=== PATIENT | female | born 1950 | race Caucasian/White ===

== ENCOUNTER 2019-05-31 11:04 | Inpatient (IN) | payer BC, OTHER ==
--- NOTE | 2019-05-31 11:48 | EKG ---
Test Reason : Blood Pressure : / mmHG Vent. Rate : 098 BPM Atrial Rate : 098 BPM P-R Int : 140 ms QRS Dur : 086 ms QT Int : 348 ms P-R-T Axes : 004 016 035 degrees QTc Int : 444 ms NORMAL SINUS RHYTHM CANNOT RULE OUT ANTERIOR INFARCT (CITED ON OR BEFORE 26-OCT-2013) ABNORMAL ECG WHEN COMPARED WITH ECG OF 26-OCT-2013 12:27, T WAVE VARIATION Confirmed by NOAH GARCIA, NORM ([id number]) on 05/31/2019 11:47:56 AM Referred By: Confirmed By:NORM ZAMORA MD
--- NOTE | 2019-05-31 11:52 | PDOC ---
History of Present Illness - General Chief Complaint: Chest Pain Stated Complaint: CHEST PAIN/HTN Time Seen by Provider: 05/31/19 11:52 Past History - Past Medical History Allergies/Adverse Reactions: Allergies Allergy/AdvReac Type Severity Reaction Status Date / Time No Known Allergies Allergy Verified 05/31/19 11:14 Home Medications: Ambulatory Orders Aspirin [Baby Aspirin] 81 mg PO DAILY 12/31/11 Lisinopril [Prinivil] 5 mg PO DAILY 12/31/11 Metoprolol Tartrate [Lopressor] 50 mg PO DAILY 12/31/11 Oxycodone HCl/Acetaminophen [Percocet 5-325 mg Tablet] 2 each PO Q6H PRN #10 04/07 Pitavastatin Calcium [Livalo] 2 mg PO DAILY 12/31/11 Tamsulosin HCl [Flomax] 0.4 mg PO DAILY #7 cap.er.24h 12/31/11 Cardiac Disorders: Yes (STENTS X 2) COPD: No HTN: Yes (NOT COMPLIANT) Hypercholesterolemia: Yes - Surgical History Cardiac Surgery: Yes (2 STENTS) - Immunization History Td Vaccination: Yes Immunization Up to Date: Yes - Suicide/Smoking/Psychosocial Hx Smoking Status: Yes Smoking History: Current every day smoker Number of Cigarettes Smoked Daily: 5 Information on smoking cessation initiated: No Hx Alcohol Use: No Drug/Substance Use Hx: No Substance Use Type: None *Physical Exam - Vital Signs Last Vital Signs Temp Pulse Resp BP Pulse Ox 98.6 F 99 H 19 222/110 H 96 05/31/19 11:11 05/31/19 11:11 05/31/19 11:11 05/31/19 11:11 05/31/19 11:11 ED Treatment Course - LABORATORY CBC & Chemistry Diagram: 05/31/19 12:21 05/31/19 12:21 Medical Decision Making - Medical Decision Making 05/31/19 13:03 HPI 69 year old woman with a history of smoking for 50+ years, 2 stents (mid-LAD, RCA), HTN, HLD (noncompliant w/ meds for 3 years) who presents with seconds of 7 /10 aching chest pain that woke her up from sleep yesterday at 0300 and with residual bilateral upper arm aching that was 7/10 and lasted for 5-10min. The patient had another episode of this same episode at 0330 this AM. She went to her PCP Dr. Kidd who called her division engineer Dr. Nunez who recommended she come to the ED. The patient denied any nausea, diaphoresis, or shortness of breath. The PCP was also concerned that the patient's R leg was swollen along the calf, but the patient had not noticed this before. She did not however she had had several months of bilateral leg pain that occurred while walking and resolves with rest. She reports resolution of all symptoms at bedside, but feels anxious. Repeat BP in the room 176/80 ROS GENERAL/CONSTITUTIONAL: No fever or chills. No weakness. HEAD, EYES, EARS, NOSE AND THROAT: No change in vision. No ear pain or discharge. No sore throat. CARDIOVASCULAR: No shortness of breath RESPIRATORY: No cough, wheezing, or hemoptysis. GASTROINTESTINAL: No nausea, vomiting, diarrhea or constipation. GENITOURINARY: No dysuria, frequency, or change in urination. MUSCULOSKELETAL: No joint or muscle swelling or pain. No neck or back pain. SKIN: No rash NEUROLOGIC: No headache, vertigo, loss of consciousness, or change in strength/ sensation. PE GENERAL: Awake, alert, and fully oriented, in no acute distress, obese woman HEAD: No signs of trauma, normocephalic, atraumatic EYES: EOMI, sclera anicteric, conjunctiva clear ENT: oropharynx clear without exudates. Moist mucosa NECK: Normal ROM, supple LUNGS: No distress, speaks full sentences, clear to auscultation bilaterally HEART: Regular rate and rhythm, normal S1 and S2, no murmurs, rubs or gallops, peripheral pulses normal and equal bilaterally. ABDOMEN: Soft, nontender, normoactive bowel sounds. No guarding, no rebound. No masses EXTREMITIES : Normal inspection, Normal range of motion, slight swelling around the R knee. No clubbing or cyanosis. NEUROLOGICAL: Cranial nerves II through XII grossly intact. Normal speech, no focal sensorimotor deficits SKIN: Warm, Dry, normal turgor, no rashes or lesions noted MDM 69 year old woman with a history of smoking for 50+ years, 2 stents (mid-LAD, RCA), HTN, HLD (noncompliant w/ meds for 3 years) who presents with seconds of 7 /10 aching chest pain that woke her up from sleep yesterday at 0300 and with residual bilateral upper arm aching that was 7/10 and lasted for 5-10min. The patient had another episode of this same episode at 0330 this AM. DDX including but not limited to: acs vs arrythmia r/o DVT r/o aortic dissection W/U: - cbc, cmp, bnp, trop, ekg, cxr, duplex ED Course: labs wnl cxr without acute process EKG: normal sinus rhythm HR 96, no interval abnormalities, narrow QRS, ST segments and morphology normal. T wave flattening in V1 no priors for comparison CTA: no evidence of aortic dissection or anuersym Will admit to tele obs for r/o acs Dianne Bender, PGY2 Emergency Medicine *DC/Admit/Observation/Transfer Diagnosis at time of Disposition: Chest pain - Discharge Dispostion Condition at time of disposition: Stable Decision to Admit order: Yes - Referrals - Patient Instructions - Post Discharge Activity
[2019-05-31 12:31] LABS: EOS % 1.1 % (0-4.5); HEMATOCRIT 43.2 % (32.4-45.2); HEMOGLOBIN 14.3 GM/dL (10.7-15.3); MCH 28.4 pg (25.7-33.7); MEAN CELL VOLUME 86.1 fl (80-96); MEAN PLT VOLUME 8.1 fl (7.5-11.1); MONO % 6.8 % (3.8-10.2); NEUT % 72.1 % (42.8-82.8); PLATELET COUNT 212 K/MM3 (134-434); RBC 5.02 M/mm3 (3.60-5.2); RDW 14.6 % (11.6-15.6); WHITE BLOOD COUNT 7.4 K/mm3 (4.0-10.0)
[2019-05-31 13:09] LABS: ALBUMIN 3.3 g/dl (3.4-5.0); ALK PHOS 111 U/L (45-117); ANION GAP 7 MMOL/L (8-16); BILIRUBIN,TOTAL 0.8 mg/dL (0.2-1); BLOOD UREA NITROGEN 16.4 mg/dL (7-18); CALCIUM 9.2 mg/dL (8.5-10.1); CHLORIDE 109 mmol/L (98-107); CO2 26 mmol/L (21-32); GLUCOSE,RANDOM 151 mg/dL (74-106); POTASSIUM 4.3 mmol/L (3.5-5.1); SGOT/AST 18 U/L (15-37); SGPT/ALT 24 U/L (13-61); SODIUM 141 mmol/L (136-145); TOT PROT 6.9 g/dl (6.4-8.2)
[2019-05-31 13:12] LABS: INR 1.01 (0.83-1.09); PROTHROMBIN TIME (PATIENT) 11.9 SEC (9.7-13.0)
--- NOTE | 2019-05-31 13:59 | PDOC ---
Documentation entered by Ernestina Morrow SCRIBE, acting as scribe for Momo Ricks MD. Momo Ricks MD: This documentation has been prepared by the Cristhian thompson Xhesika, SCRIBE, under my direction and personally reviewed by me in its entirety. I confirm that the documentation accurately reflects all work, treatment, procedures, and medical decision making performed by me. Attending Attestation - Resident Resident Name: Dianne Bender - ED Attending Attestation I have performed the following: I have examined & evaluated the patient, The case was reviewed & discussed with the resident, I agree w/resident's findings & plan - HPI HPI: 05/31/19 13:23 The patient is a 69 year old female with a significant PMH of [place] (stents x2), HLD, and HTN (non compliant with medication), noncompliant with all meds, who presents to the emergency department with chest pain since 3am yesterday. The patient notes she endorsed 7/10, substernal, achy chest pain that woke her up from her sleep, it lasted seconds then radiated to her b/l arms lasting 5-10 minutes before subsiding. The patient notes she woke up this AM and symptoms recurred which prompted her to go to her PCP, who advised her to come to the ED for further evaluations. Patient notes she has been endorsing intermittent R calf/foot pain, worsened with walking and relieved with rest. The patient denies shortness of breath, headache and dizziness. Denies fever, chills, cough, nausea, vomiting, diarrhea and constipation. Denies dysuria, frequency, urgency and hematuria. Allergies: NKDA Social history: current everyday smoker 50+ years PCP: Dr. Kidd Mental Health Program Manager: Dr. Nunez - Physicial Exam PE: 05/31/19 13:55 Elevated triage blood pressure, improves to 170 systolic, O2 sat normal Obese female seated comfortably in stretcher, speaking full sentences, in no acute distress, conversant and smiling Heart is regular, one out of 6 systolic ejection murmur Lungs are clear Abdomen benign Extremities are warm and well perfused, but unable to palpate pulses on right foot - Medical Decision Making 05/31/19 13:56 69-year-old female with known coronary artery disease, untreated hypertension, likely peripheral vascular disease presents with episode of chest/arm pain in the setting of significantly elevated blood pressures occurring over the last 2 days, and several weeks of what appears to be right lower extremity claudication symptoms. labs, ekg, cxr cta chest to r/o dissection given elevated BP and arm complaints will need admission for cardiac workup and BP control. no dvt on lower extremity doppler, will need arterial imaging as inpatient 05/31/19 16:10 cta without dissection. proceed with tele admit for cardiac workup, BP remains improved. Heart Score/ECG Review #1 ECG reviewed & interpreted by me at: 11:04 General ECG Interpretation: Sinus Rhythm, Normal Rate (98), Normal Intervals ( qtc 444), No acute ischemic changes (st strain I/AVL, no t wave changes or DOE)
[2019-06-01] MEDS ORDERED: ACETAMINOPHEN 325 MG TABLET (FP) PO PRN (08:31)
[2019-06-01] MEDS: HEPARIN NA (PORCINE) 5,000 UNITS/ML 1ML VIAL SQ SCH ×2 (10:23→22:24)
[2019-06-01] MEDS: ASPIRIN COATED 81 MG TABLET.EC PO SCH (10:23)
--- NOTE | 2019-06-01 10:31 | CON.CARD ---
Consult Consult Specialty:: Cardiology Referred by:: Medicine Reason for Consultation:: chest and arm pain - History of Present Illness Chief Complaint: chest and arm pain History of Present Illness: 69F h/o smoking, CAD s/p 2 stents (mid LAD, RCA), HTN, HLD (noncompliant with statin) p/w chest pain that woke her up from sleep overnight, also felt aching in both arms that lasted 5-10 min. Had a second episode about an hour later. Was concerned as she had this in the past around the time she got stents. Sees Dr. Nunez for cardio, last seen in 2013. No dyspnea, palps, orthopnea, edema. Has pain in both legs with walking, better with rest. Went to PCP Dr Kidd, reportedly BP was >200 systolic there. She was told in the past to take BP meds but stopped taking them on her own. - History Source Limitations to Obtaining History: No Limitations - Alcohol/Substance Use Hx Alcohol Use: No - Smoking History Smoking history: Current every day smoker Aproximately how many cigarettes per day: 5 Home Medications - Allergies Allergies/Adverse Reactions: Allergies Allergy/AdvReac Type Severity Reaction Status Date / Time No Known Allergies Allergy Verified 05/31/19 11:14 - Home Medications Home Medications: Ambulatory Orders NK [No Known Home Medication] 06/01/19 Family Disease History - Family Disease History Family History: Unremarkable Review of Systems - Review of Systems Constitutional: reports: No Symptoms Eyes: reports: No Symptoms HENT: reports: No Symptoms Neck: reports: No Symptoms Cardiovascular: reports: No Symptoms Respiratory: reports: No Symptoms Gastrointestinal: reports: No Symptoms Genitourinary: reports: No Symptoms Musculoskeletal: reports: No Symptoms Integumentary: reports: No Symptoms Neurological: reports: No Symptoms Endocrine: reports: No Symptoms Hematology/Lymphatic: reports: No Symptoms Psychiatric: reports: No Symptoms Vital Signs: Vital Signs Temperature 98.1 F 06/01/19 10:16 Pulse Rate 77 06/01/19 10:16 Respiratory Rate 18 06/01/19 10:16 Blood Pressure 155/91 06/01/19 10:16 O2 Sat by Pulse Oximetry (%) 98 06/01/19 10:16 Constitutional: Yes: Well Nourished, No Distress, Calm Eyes: Yes: Conjunctiva Clear, EOM Intact HENT: Yes: Atraumatic, Normocephalic Neck: Yes: Supple, Trachea Midline Respiratory: Yes: Regular, CTA Bilaterally Gastrointestinal: Yes: Normal Bowel Sounds, Soft Cardiovascular: Yes: Regular Rate and Rhythm JVD: No Carotid Bruit: No PMI: Non-Displaced Heart Sounds: Yes: S1, S2 Murmur: No: Systolic Murmur Musculoskeletal: No: Back Pain Extremities: No: Cold Edema: No Integumentary: No: Jaundice Neurological: Yes: Alert, Oriented Psychiatric: No: Agitated - Other Data Labs, Other Data: CBC, BMP 05/31/19 12:21 05/31/19 12:21 INR, PTT INR 1.01 (0.83-1.09) 05/31/19 12:23 Troponin, BNP 05/31/19 05/31/19 05/31/19 12:21 12:21 16:31 Troponin I < 0.02 < 0.02 B-Natriuretic Peptide 57.8 Troponin, BNP 05/31/19 05/31/19 05/31/19 12:21 12:21 16:31 Troponin I < 0.02 < 0.02 B-Natriuretic Peptide 57.8 Assessment/Plan CTA chest/abd aorta atherosclerosis, no aeurysm or dissection, minimal centrilobular emphysema, thyroid nodule, mild fatty infiltration of liver, diverticulosis, masslike density in L hemielvis EKG sinus, 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
--- NOTE | 2019-06-01 13:36 | HP ---
Admitting History and Physical - Primary Care Physician PCP: Dr. Kidd - Admission Chief Complaint: B/L arm pain and chest pressure History of Present Illness: Patient is a 69 y/o female with past medical history of [place] x 2 stent placements (2007, 2012), HTN, HLD. Patient presented to ER with complaints of bilateral shoulder pain for 3 days. Patient states the pain is described as dull/aching that begins at shoulders and ends at her elbows. Patient noted that yesterday she had a brief episode of mid chest pressure, not accompanied with N/V, SOB, or dizziness. Patient states that she has not taken her BP or cardiac medications in 2 years. The last time she has seen her acid strength inspector was in 2012 after her second SC. History Source: Patient Limitations to Obtaining History: No Limitations - Past Medical History Cardiovascular: Yes: HTN, Hyperlipdemia, [place] (2007, 2012) - Past Surgical History Past Surgical History: Yes: , Stent (x 2 placed in 2007 and 2012) - Smoking History Smoking history: Current every day smoker Aproximately how many cigarettes per day: 5 - Alcohol/Substance Use Hx Alcohol Use: No - Social History Usual Living Arrangement: Yes: With Spouse ADL: Independent History of Recent Travel: No Home Medications - Allergies Allergies/Adverse Reactions: Allergies Allergy/AdvReac Type Severity Reaction Status Date / Time No Known Allergies Allergy Verified 05/31/19 11:14 - Home Medications Home Medications: Ambulatory Orders NK [No Known Home Medication] 06/01/19 Review of Systems - Review of Systems Constitutional: reports: No Symptoms Eyes: reports: No Symptoms HENT: reports: Nasal Congestion Neck: reports: No Symptoms Cardiovascular: reports: No Symptoms Respiratory: reports: No Symptoms Gastrointestinal: reports: No Symptoms Genitourinary: reports: No Symptoms Breasts: reports: No Symptoms Reported Musculoskeletal: reports: Extremity Pain (bilateral arms) Integumentary: reports: No Symptoms Neurological: reports: No Symptoms Endocrine: reports: No Symptoms Hematology/Lymphatic: reports: No Symptoms Psychiatric: reports: No Symptoms Physical Examination Vital Signs: Vital Signs Temperature 98.0 F 06/01/19 11:26 Pulse Rate 79 06/01/19 11:26 Respiratory Rate 18 06/01/19 11:26 Blood Pressure 142/79 06/01/19 11:26 O2 Sat by Pulse Oximetry (%) 95 06/01/19 11:26 Constitutional: Yes: No Distress, Calm Eyes: Yes: Conjunctiva Clear HENT: Yes: Atraumatic Neck: Yes: Supple Cardiovascular: Yes: Regular Rate and Rhythm Respiratory: Yes: Regular, CTA Bilaterally Gastrointestinal: Yes: Normal Bowel Sounds, Soft, Abdomen, Obese Musculoskeletal: Yes: WNL Extremities: Yes: WNL Edema: No Neurological: Yes: Alert, Oriented Psychiatric: Yes: Alert, Oriented Labs: CBC, BMP 05/31/19 12:21 05/31/19 12:21 Imaging - Results Cat Scan: Report Reviewed Problem List - Problems (1) HLD (hyperlipidemia) Assessment/Plan: -Rosuvastatin Code(s): E78.5 - HYPERLIPIDEMIA, UNSPECIFIED (2) HTN (hypertension) Assessment/Plan: -currently not on BP meds -monitor BP--if BP begin to show signs of elevation will consider re-starting medication -low Na diet Code(s): I10 - ESSENTIAL (PRIMARY) HYPERTENSION (3) Chest pain Assessment/Plan: -Cardiology on board -tele monitoring -troponin neg x 2 -aspirin daily -Chest and ABdomen CTA shows prominent atheromatous plaques with calcifications in the distal abdominal aorta, no evidence of aortic dissection or aneurysm Code(s): R07.9 - CHEST PAIN, UNSPECIFIED (4) Abnormal CT scan Assessment/Plan: -Chest and ABdomen CTA shows minimal centrilobular emphysema in lung, enlarged thyroid gland with 1.5cm nodule on left, mild fatty infiltration of liver, lobulated masslike density in the left hemipelvis 8 x 5.2cm -Pulm consult -Endo consult -BAND BUILDER consult Code(s): R93.89 - ABNORMAL FINDINGS ON DX IMAGING OF OTH BODY STRUCTURES Assessment/Plan see problem list dvt ppx
--- NOTE | 2019-06-01 15:56 | ECHO ---
Version: 1 Name: RADHA GALVAN Exam: Adult Echocardiogram Study Date: 06/01/2019, 2:41 PM Age: 69 Years MMode/2D Measurements & Calculations IVSd: 0.95 cm LVIDs: 3.1 cm LVIDd: 4.7 cm LVPWd: 0.92 cm LVOT diam: 2.02 cm Ao root diam: 2.6 cm LA dimension: 3.4 cm Doppler Measurements & Calculations MV E max mahesh: 62.2 cm/sec Med E/e': 12.3 MV A max mahesh: 100.7 cm/sec Med Peak E' Mahesh: 5.1 cm/sec MV E/A: 0.62 Lat E/e': 13.9 Lat Peak E' Mahesh: 4.5 cm/sec Ao max P.6 mmHg SARAH(I,D): 1.87 cm Ao mean P.8 mmHg LV V1 mean: 65.1 cm/sec Ao V2 max: 137.7 cm/sec LV V1 mean P.89 mmHg Procedure A two-dimensional transthoracic echocardiogram with color flow and Doppler was performed in limited views only. No subcostal windows. The remaining windows are adequate. Left Ventricle The left ventricular size, thickness and function are normal. Grade I diastolic dysfunction, (abnorm al relaxation pattern). Right Ventricle The right ventricle is normal in size and function. Atria Normal left and right atrial size and function. Mitral Valve The mitral valve is normal in structure and function. Tricuspid Valve The tricuspid valve is normal in structure and function. There is mild tricuspid regurgitation. Aortic Valve The aortic valve is normal in structure and function. Pulmonic Valve The pulmonic valve is normal in structure and function. Great Vessels The aortic root is normal size. Pericardium/Pleura There is no pericardial effusion. Summary Statements The left ventricular size, thickness and function are normal Grade I diastolic dysfunction, (abnormal relaxation pattern). The right ventricle is normal in size and function. The aortic valve is normal in structure and function. Jonathan Hernandez 06/01/2019, 2:55 PM Ordering Physician: JERMAIN BUTLER Referring Physician: OVI Performed By: Nkechi Monae
[2019-06-01] MEDS: ROSUVASTATIN CA 20 MG TABLET (FP) PO SCH (22:24)
[2019-06-02 08:22] LABS: EOS % 2.6 % (0-4.5); HEMATOCRIT 40.9 % (32.4-45.2); HEMOGLOBIN 13.4 GM/dL (10.7-15.3); LYMPH % 31.9 % (8-40); MCH 28.5 pg (25.7-33.7); MCHC 32.7 g/dl (32.0-36.0); MEAN CELL VOLUME 87.1 fl (80-96); MEAN PLT VOLUME 8.5 fl (7.5-11.1); MONO % 9.7 % (3.8-10.2); NEUT % 54.8 % (42.8-82.8); PLATELET COUNT 192 K/MM3 (134-434); RDW 14.6 % (11.6-15.6); WHITE BLOOD COUNT 6.4 K/mm3 (4.0-10.0)
[2019-06-02 09:15] LABS: ALBUMIN 2.9 g/dl (3.4-5.0); ALK PHOS 94 U/L (45-117); ANION GAP 8 MMOL/L (8-16); BLOOD UREA NITROGEN 19.5 mg/dL (7-18); CALCIUM 9.1 mg/dL (8.5-10.1); CHLORIDE 109 mmol/L (98-107); CHOLESTEROL 212 mg/dL (50-200); CO2 28 mmol/L (21-32); GLUCOSE,RANDOM 133 mg/dL (74-106); HDL CHOLESTEROL 30 mg/dL (40-60); POTASSIUM 4.2 mmol/L (3.5-5.1); SGOT/AST 14 U/L (15-37); SGPT/ALT 19 U/L (13-61); SODIUM 144 mmol/L (136-145); TOT PROT 6.2 g/dl (6.4-8.2); TRIGLYCERIDES 412 mg/dL (0-150)
[2019-06-02] MEDS: HEPARIN NA (PORCINE) 5,000 UNITS/ML 1ML VIAL SQ SCH ×2 (10:31→21:37)
[2019-06-02] MEDS: ASPIRIN COATED 81 MG TABLET.EC PO SCH (10:31)
[2019-06-02] MEDS ORDERED: REGADENOSON 0.4 MG/5 ML PRE-FILLED SYRINGE IVPUSH ONE ×2 (10:53→11:15)
--- NOTE | 2019-06-02 12:05 | CON.PULM ---
Consult Consult Specialty:: PULM/CCM Referred by:: FRANCINE Reason for Consultation:: Abnormal CT chest - History of Present Illness Chief Complaint: CP History of Present Illness: 69 F, 1 PPW smoker, CAD S/P 2 stents (mid LAD, RCA), HTN, and HLD. Previously stopped smoking for almost 2 years "cold turkey" after her second AMI. She does snore and have some Excessive Daytime Sleepiness (EDS). No specific history of witnessed apneas as she sleeps alone. Admitted via the ER due to chest pain that woke her up from sleep. No travel history or sick contacts. No fever or chills. No hemoptysis of night sweats. No previous PFTs. No previous need for inhalational medications, prednisone, or acute exacerbations. - History Source History Provided By: Patient Limitations to Obtaining History: No Limitations - Past Medical History Cardio/Vascular: Yes: HTN, Hyperlipdemia, [place] (2007, 2012) Pulmonary: Yes: Bronchitis. No: Asthma, Cancer, COPD, O2 Dependent, Pneumonia, Previously Intubated, Pulmonary Embolus, Pulmonary Fibrosis, Sleep Apnea ...: No - Past Surgical History Past Surgical History: Yes: , Stent (x 2 placed in 2007 and 2012) - Alcohol/Substance Use Hx Alcohol Use: No - Smoking History Smoking history: Current every day smoker Have you smoked in the past 12 months: Yes Aproximately how many cigarettes per day: 5 - Social History ADL: Independent History of Recent Travel: No Home Medications - Allergies Allergies/Adverse Reactions: Allergies Allergy/AdvReac Type Severity Reaction Status Date / Time No Known Allergies Allergy Verified 05/31/19 11:14 - Home Medications Home Medications: Ambulatory Orders NK [No Known Home Medication] 06/01/19 Review of Systems - Review of Systems Constitutional: denies: Chills, Fever, Malaise, Night Sweats, Unintentional Wgt. Loss Eyes: reports: No Symptoms HENT: reports: No Symptoms Neck: reports: No Symptoms Cardiovascular: reports: Chest Pain, Shortness of Breath. denies: Edema, Palpitations Respiratory: reports: Cough, Snoring. denies: Hemoptysis, Orthopnea, PND, SOB, SOB on Exertion, Wheezing Gastrointestinal: reports: No Symptoms Genitourinary: reports: No Symptoms Breasts: reports: No Symptoms Reported Musculoskeletal: reports: No Symptoms Integumentary: reports: No Symptoms Neurological: reports: No Symptoms Endocrine: reports: No Symptoms Hematology/Lymphatic: reports: No Symptoms Psychiatric: reports: No Symptoms Physical Exam Vital Sings: Vital Signs Temperature 97.8 F 06/02/19 08:24 Pulse Rate 73 06/02/19 08:24 Respiratory Rate 18 06/02/19 08:26 Blood Pressure 149/87 06/02/19 08:24 O2 Sat by Pulse Oximetry (%) 94 L 06/01/19 21:00 Constitutional: Yes: No Distress, Calm, Obese Eyes: Yes: Conjunctiva Clear, EOM Intact HENT: Yes: Atraumatic, Normocephalic Neck: Yes: Supple, Trachea Midline Cardiovascular: Yes: Regular Rate and Rhythm Respiratory: Yes: Diminished. No: Accessory Muscle Use, Rales, Rhonchi, SOB, SOB on Exertion, Stridor, Tachypnea, Wheezes ...Inspection: Yes: WNL ...Clubbing: No Gastrointestinal: Yes: Normal Bowel Sounds, Soft, Abdomen, Obese Renal/: Yes: WNL Musculoskeletal: Yes: WNL Extremities: Yes: WNL Edema: No Peripheral Pulses WNL: Yes Integumentary: Yes: WNL Neurological: Yes: WNL, Alert, Oriented ...Motor Strength: WNL Psychiatric: Yes: WNL, Alert, Oriented Labs: CBC, BMP 06/02/19 06:15 06/02/19 06:15 Imaging - Results Chest X-ray: Report Reviewed, Image Reviewed Cat Scan: Report Reviewed, Image Reviewed Problem List - Problems (1) Emphysema of lung Code(s): J43.9 - EMPHYSEMA, UNSPECIFIED (2) Abnormal CT scan Code(s): R93.89 - ABNORMAL FINDINGS ON DX IMAGING OF OTH BODY STRUCTURES (3) Chest pain Code(s): R07.9 - CHEST PAIN, UNSPECIFIED (4) HLD (hyperlipidemia) Code(s): E78.5 - HYPERLIPIDEMIA, UNSPECIFIED (5) HTN (hypertension) Code(s): I10 - ESSENTIAL (PRIMARY) HYPERTENSION (6) Thyroid nodule Code(s): E04.1 - NONTOXIC SINGLE THYROID NODULE Assessment/Plan Smoking cessation discussed Patient advised to have PFTs as an outpatient Sleep screen for possible sleep apnea Cardiac workup ongoing Patient to follow with me as an outpatient to complete workup There is no Pulmonary contraindication for DC planning if cardiac workup is negative Thank you. Dr Snowden
--- NOTE | 2019-06-02 12:33 | CON.OBG ---
Consult Consult Specialty:: CARPENTER MATE Reason for Consultation:: pelvic masslike density seen on imaging - History of Present Illness History of Present Illness: Patient is a 69 y/o female with past medical history of [place] x 2 with stents, HTN , HLD who presented to ED with complaints of bilateral shoulder pain for 3 days that was waking her up at 3 am. Pain would resolve after short time and didnt recur throughout the day. Patient states the pain is described as dull/aching that begins at shoulders and ends at her elbows. Pt admitted for cardiac workup and upon imaging studies was found to have a masslike density in her pelvis on the left. Pt admits to not seeing a first aid director in many years. LMP about 10- 15 years ago. Denies pelvic pain/pressure. No PMB. Has had c section otherwise no abdominal/pelvic surgeries. Pt states a few years ago she had an ultrasound and was told she had fibroids, but she was asymptomatic at that time. - History Source History Provided By: Patient, Medical Record Limitations to Obtaining History: No Limitations - Past Medical History Cardio/Vascular: Yes: HTN, Hyperlipdemia, [place] (2007, 2012) Pulmonary: Yes: Bronchitis. No: Asthma, Cancer, COPD, O2 Dependent, Pneumonia, Previously Intubated, Pulmonary Embolus, Pulmonary Fibrosis, Sleep Apnea ...LMP Comment: 10-15 years ago ...: No - Past Surgical History Past Surgical History: Yes: , Stent (x 2 placed in 2007 and 2012) - Alcohol/Substance Use Hx Alcohol Use: No - Smoking History Smoking history: Current every day smoker Have you smoked in the past 12 months: Yes Aproximately how many cigarettes per day: 5 - Social History ADL: Independent History of Recent Travel: No Home Medications - Allergies Allergies/Adverse Reactions: Allergies Allergy/AdvReac Type Severity Reaction Status Date / Time No Known Allergies Allergy Verified 05/31/19 11:14 - Home Medications Home Medications: Ambulatory Orders NK [No Known Home Medication] 06/01/19 Family Disease History - Family Disease History Family Disease History: Diabetes: Father Other Family History: Paternal great aunt and Paternal aunt both had breast cancer resulting in mastectomy, mother had brain tumor. Pt denies any uterine/ ovarian cancer in family. 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 No: Tenderness , Tenderness, Rebound Pelvis: No: Tenderness Neurological: Yes: Alert, Oriented Psychiatric: Yes: Alert, Oriented Labs: CBC, BMP 06/02/19 06:15 06/02/19 06:15 Problem List - Problems (1) Pelvic mass in female Code(s): R19.00 - INTRA-ABD AND PELVIC SWELLING, MASS AND LUMP, UNSP SITE (2) Menopause Code(s): Z78.0 - ASYMPTOMATIC MENOPAUSAL STATE (3) Emphysema of lung Code(s): J43.9 - EMPHYSEMA, UNSPECIFIED (4) Chest pain Code(s): R07.9 - CHEST PAIN, UNSPECIFIED (5) Abnormal CT scan Code(s): R93.89 - ABNORMAL FINDINGS ON DX IMAGING OF OTH BODY STRUCTURES (6) Thyroid nodule Code(s): E04.1 - NONTOXIC SINGLE THYROID NODULE Assessment/Plan 69 y/o female here with workup for chest/arm/shoulder pain with pelvic mass noted on CT scan ordered Ca 125 - pending will order pelvic ultrasound f/u results, likely as outpatient for surgical planning if necessary as pt currently not medically optimized for surgery
--- NOTE | 2019-06-02 14:10 | PN ---
Progress Note, Physician Chief Complaint: Chest pain Pelvic mass History of Present Illness: NAD Seen by cardiology trops x 3 negative EKG unremarkable Echo grade I dystolic dysfunction - Current Medication List Current Medications: Active Medications Acetaminophen (Tylenol -) 650 mg PO Q6H PRN PRN Reason: PAIN LEVEL 6-10 Aspirin (Ecotrin -) 81 mg PO DAILY [facility] Last Admin: 06/02/19 10:31 Dose: 81 mg Heparin Sodium (Porcine) (Heparin -) 5,000 unit SQ BID [facility] Last Admin: 06/02/19 10:31 Dose: 5,000 unit Rosuvastatin Calcium (Crestor -) 20 mg PO HS [facility] Last Admin: 06/01/19 22:24 Dose: 20 mg - Objective Vital Signs: Vital Signs Temperature 97.8 F 06/02/19 08:24 Pulse Rate 73 06/02/19 08:24 Respiratory Rate 18 06/02/19 08:26 Blood Pressure 149/87 06/02/19 08:24 O2 Sat by Pulse Oximetry (%) 94 L 06/01/19 21:00 Constitutional: Yes: Well Nourished, No Distress, Calm, Obese Cardiovascular: Yes: Regular Rate and Rhythm Respiratory: Yes: Regular Gastrointestinal: Yes: WNL, Normal Bowel Sounds, Soft Genitourinary: Yes: WNL Musculoskeletal: Yes: WNL Extremities: Yes: WNL Edema: No Peripheral Pulses WNL: Yes Neurological: Yes: Alert, Oriented Psychiatric: Yes: Alert, Oriented Labs: CBC, BMP 06/02/19 06:15 06/02/19 06:15 INR, PTT INR 1.01 (0.83-1.09) 05/31/19 12:23 Problem List - Problems (1) Chest pain Assessment/Plan: -Cardiology on board -tele monitoring -troponin neg x 3 -aspirin daily -Chest and ABdomen CTA shows prominent atheromatous plaques with calcifications in the distal abdominal aorta, no evidence of aortic dissection or aneurysm -Had stress test today -Restarted on Crestor Code(s): R07.9 - CHEST PAIN, UNSPECIFIED (2) HLD (hyperlipidemia) Assessment/Plan: -intolerant to lipitor in the past, tolerated crestor -restarted on crestor Code(s): E78.5 - HYPERLIPIDEMIA, UNSPECIFIED (3) Pelvic mass in female Assessment/Plan: -SOILS ANALYST consult -Chest and ABdomen CTA shows minimal centrilobular emphysema in lung, enlarged thyroid gland with 1.5cm nodule on left, mild fatty infiltration of liver, lobulated masslike density in the left hemipelvis 8 x 5.2cm Code(s): R19.00 - INTRA-ABD AND PELVIC SWELLING, MASS AND LUMP, UNSP SITE (4) Diabetes mellitus Assessment/Plan: -A1c at 8.8 -BGM AC HS -Diabetic low sodium diet -ISS -RD consult -Start Metformin 500 mg po BID upon discharge Code(s): E11.9 - TYPE 2 DIABETES MELLITUS WITHOUT COMPLICATIONS (5) Hypertriglyceridemia Assessment/Plan: -Start Lovaza 2 g BID Code(s): E78.1 - PURE HYPERGLYCERIDEMIA Assessment/Plan see problem list
[2019-06-02] MEDS: INSULIN SLIDING SCALE (NOVOLOG) 1 VIAL SQ SCH (16:34)
--- NOTE | 2019-06-02 16:54 | PN ---
Progress Note (short form) - Note Progress Note: s: no cp sob palps dizzy o: Vital Signs Period Temp Pulse Resp BP Sys/Torre Pulse Ox Last 24 Hr 97.2 F-98.2 F 71-86 18-20 139-156/71-92 94 Constitutional: Yes: Well Nourished, No Distress, Calm Eyes: Yes: Conjunctiva Clear Respiratory: Yes: Regular, CTA Bilaterally Gastrointestinal: Yes: Normal Bowel Sounds, Soft Cardiovascular: Yes: Regular Rate and Rhythm JVD: No Heart Sounds: Yes: S1, S2 Murmur: No: Systolic Murmur Musculoskeletal: No: Back Pain Extremities: No: Cold Edema: No Integumentary: No: Jaundice Neurological: Yes: Alert, Oriented Psychiatric: No: Agitated Current Medications Generic Name Dose Route Start Last Admin Trade Name Freq PRN Reason Stop Dose Admin Acetaminophen 650 mg 06/01/19 08:31 Tylenol - PO Q6H PRN PAIN LEVEL 6-10 Aspirin 81 mg 06/01/19 10:00 06/02/19 10:31 Ecotrin - PO 81 mg DAILY [facility] Administration Heparin Sodium (Porcine) 5,000 unit 06/01/19 10:00 06/02/19 10:31 Heparin - SQ 5,000 unit BID [facility] Administration Insulin Aspart 1 vial 06/02/19 16:30 06/02/19 16:34 Novolog Vial Sliding Scale - SQ Not Given TIDAC [facility] Protocol Rosuvastatin Calcium 20 mg 06/01/19 22:00 06/01/19 22:24 Crestor - PO 20 mg HS [facility] Administration CBC, BMP 06/02/19 06:15 06/02/19 06:15 Assessment/Plan CTA chest/abd aorta atherosclerosis, no aeurysm or dissection, minimal centrilobular emphysema, thyroid nodule, mild fatty infiltration of liver, diverticulosis, masslike density in L hemielvis EKG sinus, 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
[2019-06-02] MEDS: OMEGA-3 ACID ETHYL ESTERS (FATTY-ACIDS) 1 GM CAPSULE (FP) PO SCH (21:37)
[2019-06-02] MEDS: ROSUVASTATIN CA 20 MG TABLET (FP) PO SCH (21:37)
--- NOTE | 2019-06-02 23:46 | CONSULT ---
Consult Consult Specialty:: endocrine Referred by:: heena ramos np Reason for Consultation:: thyroid nodule left lobe - History of Present Illness Chief Complaint: chest pain History of Present Illness: 69 y/o female with past medical history of thyroid nodule last seen 2011,[place] x 2 stent placements (2007, 2012), HTN, HLD. Patient presented to ER with complaints of bilateral shoulder pain for 3 days. Patient states the pain is described as dull/aching that begins at shoulders and ends at her elbows. sp ct chest showed left thyroid nodule 1.5 cm calcified.she denies dysphagia,neck pain or cough.she is unaware of thyroid cancer in her family. - Past Medical History Cardio/Vascular: Yes: HTN, Hyperlipdemia, [place] (2007, 2012) Pulmonary: Yes: Bronchitis. No: Asthma, Cancer, COPD, O2 Dependent, Pneumonia, Previously Intubated, Pulmonary Embolus, Pulmonary Fibrosis, Sleep Apnea ...LMP Comment: 10-15 years ago ...: No - Past Surgical History Past Surgical History: Yes: , Stent (x 2 placed in 2007 and 2012) - Alcohol/Substance Use Hx Alcohol Use: No - Smoking History Smoking history: Current every day smoker Have you smoked in the past 12 months: Yes Aproximately how many cigarettes per day: 5 - Social History ADL: Independent History of Recent Travel: No Home Medications - Allergies Allergies/Adverse Reactions: Allergies Allergy/AdvReac Type Severity Reaction Status Date / Time No Known Allergies Allergy Verified 05/31/19 11:14 - Home Medications Home Medications: Ambulatory Orders NK [No Known Home Medication] 06/01/19 Family Disease History - Family Disease History Family Disease History: Diabetes: Father Other Family History: Paternal great aunt and Paternal aunt both had breast cancer resulting in mastectomy, mother had brain tumor. Pt denies any uterine/ ovarian cancer in family. Review of Systems - Review of Systems Constitutional: reports: Weakness Eyes: reports: No Symptoms HENT: reports: No Symptoms Neck: reports: No Symptoms Cardiovascular: reports: Shortness of Breath Respiratory: reports: Exercise Intolerance Gastrointestinal: reports: Constipation Genitourinary: reports: No Symptoms Breasts: reports: No Symptoms Reported Musculoskeletal: reports: Muscle Pain, Muscle Cramps, Muscle Weakness Integumentary: reports: No Symptoms Neurological: reports: No Symptoms Endocrine: reports: Unexplained Weight Gain Physical Exam Vital Signs: Vital Signs Temperature 98.2 F 06/02/19 15:06 Pulse Rate 82 06/02/19 15:06 Respiratory Rate 18 06/02/19 15:06 Blood Pressure 139/72 06/02/19 15:06 O2 Sat by Pulse Oximetry (%) 94 L 06/01/19 21:00 Constitutional: Yes: Calm Eyes: Yes: EOM Intact HENT: Yes: Normocephalic Neck: Yes: Trachea Midline, Thyromegaly, Other (left thyroid nodule palpable) Cardiovascular: Yes: Regular Rate and Rhythm Respiratory: Yes: CTA Bilaterally Gastrointestinal: Yes: Normal Bowel Sounds ...Rectal Exam: Yes: Deferred Renal/: Yes: WNL Musculoskeletal: Yes: WNL Edema: No Neurological: Yes: Alert, Oriented Labs: CBC, BMP 06/02/19 06:15 06/02/19 06:15 Problem List - Problems (1) Thyroid nodule Code(s): E04.1 - NONTOXIC SINGLE THYROID NODULE Assessment/Plan Current Active Problems Abnormal CT scan (Acute) Chest pain (Acute) Diabetes mellitus (Acute) Emphysema of lung (Acute) HLD (hyperlipidemia) (Acute) HTN (hypertension) (Acute) Hypertriglyceridemia (Acute) Menopause (Acute) Pelvic mass in female (Acute) Thyroid nodule (Acute) Abnormal Lab Results 06/02/19 06/02/19 06:15 06:15 Chloride 109 H BUN 19.5 H Random Glucose 133 H Hemoglobin A1c % 8.8 H AST 14 L Total Protein 6.2 L Albumin 2.9 L Triglycerides 412 H Cholesterol 212 H Total LDL Cholesterol 132 H HDL Cholesterol 30 L TSH 0.11 L Laboratory Results - last 24 hr 06/02/19 06/02/19 06/02/19 06:15 06:15 06:15 WBC 6.4 RBC 4.70 Hgb 13.4 Hct 40.9 MCV 87.1 MCH 28.5 MCHC 32.7 RDW 14.6 Plt Count 192 MPV 8.5 Absolute Neuts (auto) 3.5 Neutrophils % 54.8 D Lymphocytes % 31.9 D Monocytes % 9.7 Eosinophils % 2.6 D Basophils % 1.0 Nucleated RBC % 0 Sodium 144 Potassium 4.2 Chloride 109 H Carbon Dioxide 28 Anion Gap 8 BUN 19.5 H Creatinine 1.0 Est GFR (CKD-EPI)AfAm 66.10 Est GFR (CKD-EPI)NonAf 57.03 POC Glucometer Random Glucose 133 H Hemoglobin A1c % 8.8 H Calcium 9.1 Magnesium 2.0 Total Bilirubin 1.0 AST 14 L ALT 19 Alkaline Phosphatase 94 Creatine Kinase 57 Troponin I < 0.02 Total Protein 6.2 L Albumin 2.9 L Triglycerides 412 H Cholesterol 212 H Total LDL Cholesterol 132 H HDL Cholesterol 30 L TSH 0.11 L 06/02/19 16:31 WBC RBC Hgb Hct MCV MCH MCHC RDW Plt Count MPV Absolute Neuts (auto) Neutrophils % Lymphocytes % Monocytes % Eosinophils % Basophils % Nucleated RBC % Sodium Potassium Chloride Carbon Dioxide Anion Gap BUN Creatinine Est GFR (CKD-EPI)AfAm Est GFR (CKD-EPI)NonAf POC Glucometer 127 Random Glucose Hemoglobin A1c % Calcium Magnesium Total Bilirubin AST ALT Alkaline Phosphatase Creatine Kinase Troponin I Total Protein Albumin Triglycerides Cholesterol Total LDL Cholesterol HDL Cholesterol TSH plan: thyroid sonogram as outpatient free t4 [id number] tpo tsi
[2019-06-03] MEDS: INSULIN SLIDING SCALE (NOVOLOG) 1 VIAL SQ SCH ×2 (06:14→12:00)
[2019-06-03] MEDS ORDERED: metFORMIN HCL 500 MG TABLET (FP) PO SCH (07:00)
[2019-06-03 07:31] VITALS: TEMP 98.5
[2019-06-03] MEDS: ASPIRIN COATED 81 MG TABLET.EC PO SCH (09:13)
[2019-06-03] MEDS: HEPARIN NA (PORCINE) 5,000 UNITS/ML 1ML VIAL SQ SCH (09:13)
[2019-06-03] MEDS: OMEGA-3 ACID ETHYL ESTERS (FATTY-ACIDS) 1 GM CAPSULE (FP) PO SCH (09:13)
[2019-06-03 10:00] VITALS: BP 132/56; PULSE 82
--- NOTE | 2019-06-03 10:55 | PN ---
Progress Note (short form) - Note Progress Note: Feels well. No CP or SOB. Intake & Output 05/31/19 06/01/19 06/02/19 06/03/19 23:59 23:59 23:59 23:59 Intake Total 650 580 250 Balance 650 580 250 Weight 240 lb 245 lb 9.6 oz 246 lb Last Vital Signs Temp Pulse Resp BP Pulse Ox 98.5 F 82 18 132/56 L 95 06/03/19 09:00 06/03/19 09:00 06/03/19 09:00 06/03/19 09:00 06/03/19 09:00 Active Medications Acetaminophen (Tylenol -) 650 mg PO Q6H PRN PRN Reason: PAIN LEVEL 6-10 Aspirin (Ecotrin -) 81 mg PO DAILY [facility] Last Admin: 06/03/19 09:13 Dose: 81 mg Heparin Sodium (Porcine) (Heparin -) 5,000 unit SQ BID [facility] Last Admin: 06/03/19 09:13 Dose: 5,000 unit Insulin Aspart (Novolog Vial Sliding Scale -) 1 vial SQ TIDAC [facility]; Protocol Last Admin: 06/03/19 06:14 Dose: Not Given Metformin HCl (Glucophage -) 500 mg PO BID@0700,1630 [facility] Last Admin: 06/03/19 06:14 Dose: 500 mg [id number] Ethyl Esters (Lovaza -) 2 gm PO BID [facility] Last Admin: 06/03/19 09:13 Dose: 2 gm Rosuvastatin Calcium (Crestor -) 20 mg PO HS [facility] Last Admin: 06/02/19 21:37 Dose: 20 mg Constitutional: Yes: No Distress, Calm, Obese Eyes: Yes: Conjunctiva Clear, EOM Intact HENT: Yes: Atraumatic, Normocephalic Neck: Yes: Supple, Trachea Midline Cardiovascular: Yes: Regular Rate and Rhythm Respiratory: Yes: Diminished. No: Accessory Muscle Use, Rales, Rhonchi, SOB, SOB on Exertion, Stridor, Tachypnea, Wheezes ...Inspection: Yes: WNL ...Clubbing: No Gastrointestinal: Yes: Normal Bowel Sounds, Soft, Abdomen, Obese Renal/: Yes: WNL Musculoskeletal: Yes: WNL Extremities: Yes: WNL Edema: No Peripheral Pulses WNL: Yes Integumentary: Yes: WNL Neurological: Yes: WNL, Alert, Oriented ...Motor Strength: WNL Psychiatric: Yes: WNL, Alert, Oriented Labs: Laboratory Results - last 24 hr 06/01/19 06/02/19 06/03/19 20:00 16:31 06:13 POC Glucometer 127 157 CA 125 Antigen 46.8 H Free T4 Thyroid Stim Immunoglob 06/03/19 06/03/19 06:30 06:30 POC Glucometer CA 125 Antigen Free T4 1.25 Thyroid Stim Immunoglob Cancelled Problem List - Problems (1) Emphysema of lung Code(s): J43.9 - EMPHYSEMA, UNSPECIFIED (2) Abnormal CT scan Code(s): R93.89 - ABNORMAL FINDINGS ON DX IMAGING OF OTH BODY STRUCTURES (3) Chest pain Code(s): R07.9 - CHEST PAIN, UNSPECIFIED (4) HLD (hyperlipidemia) Code(s): E78.5 - HYPERLIPIDEMIA, UNSPECIFIED (5) HTN (hypertension) Code(s): I10 - ESSENTIAL (PRIMARY) HYPERTENSION (6) Thyroid nodule Code(s): E04.1 - NONTOXIC SINGLE THYROID NODULE Assessment/Plan Smoking cessation discussed Patient advised to have PFTs as an outpatient Sleep screen for possible sleep apnea Cardiac workup ongoing Patient to follow with me as an outpatient to complete workup There is no Pulmonary contraindication for DC planning if cardiac workup is negative Dr Snowden Problem List - Problems (1) Emphysema of lung Code(s): J43.9 - EMPHYSEMA, UNSPECIFIED (2) Abnormal CT scan Code(s): R93.89 - ABNORMAL FINDINGS ON DX IMAGING OF OTH BODY STRUCTURES (3) Chest pain Code(s): R07.9 - CHEST PAIN, UNSPECIFIED (4) HLD (hyperlipidemia) Code(s): E78.5 - HYPERLIPIDEMIA, UNSPECIFIED (5) HTN (hypertension) Code(s): I10 - ESSENTIAL (PRIMARY) HYPERTENSION (6) Thyroid nodule Code(s): E04.1 - NONTOXIC SINGLE THYROID NODULE
--- NOTE | 2019-06-03 11:02 | PN ---
Progress Note (short form) - Note Progress Note: s: no cp sob palps dizzy o: Vital Signs Period Temp Pulse Resp BP Sys/Torre Pulse Ox Last 24 Hr 98 F-98.5 F 69-90 18-20 124-171/50-85 95-95 Constitutional: Yes: Well Nourished, No Distress, Calm Eyes: Yes: Conjunctiva Clear Respiratory: Yes: Regular, CTA Bilaterally Gastrointestinal: Yes: Normal Bowel Sounds, Soft Cardiovascular: Yes: Regular Rate and Rhythm JVD: No Heart Sounds: Yes: S1, S2 Murmur: No: Systolic Murmur Musculoskeletal: No: Back Pain Extremities: No: Cold Edema: No Integumentary: No: Jaundice Neurological: Yes: Alert, Oriented Psychiatric: No: Agitated Current Medications Generic Name Dose Route Start Last Admin Trade Name Freq PRN Reason Stop Dose Admin Acetaminophen 650 mg 06/01/19 08:31 Tylenol - PO Q6H PRN PAIN LEVEL 6-10 Aspirin 81 mg 06/01/19 10:00 06/03/19 09:13 Ecotrin - PO 81 mg DAILY [facility] Administration Heparin Sodium (Porcine) 5,000 unit 06/01/19 10:00 06/03/19 09:13 Heparin - SQ 5,000 unit BID [facility] Administration Insulin Aspart 1 vial 06/02/19 16:30 06/03/19 06:14 Novolog Vial Sliding Scale - SQ Not Given TIDAC [facility] Protocol Metformin HCl 500 mg 06/03/19 07:00 06/03/19 06:14 Glucophage - PO 500 mg BID@0700,1630 [facility] Administration Pnitr-3-Ogro Ethyl Esters 2 gm 06/02/19 22:00 06/03/19 09:13 Lovaza - PO 2 gm BID [facility] Administration Rosuvastatin Calcium 20 mg 06/01/19 22:00 06/02/19 21:37 Crestor - PO 20 mg HS [facility] Administration CBC, BMP 06/02/19 06:15 06/02/19 06:15 Assessment/Plan CTA chest/abd aorta atherosclerosis, no aeurysm or dissection, minimal centrilobular emphysema, thyroid nodule, mild fatty infiltration of liver, diverticulosis, masslike density in L hemielvis EKG sinus, 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
[2019-06-03] MEDS ORDERED: METOPROLOL TARTRATE 25 MG TABLET (FP) PO SCH (11:45)
--- NOTE | 2019-06-03 11:46 | DS ---
Physical Examination Vital Signs: Vital Signs Temperature 98.5 F 06/03/19 09:00 Pulse Rate 82 06/03/19 09:00 Respiratory Rate 18 06/03/19 09:00 Blood Pressure 132/56 L 06/03/19 09:00 O2 Sat by Pulse Oximetry (%) 95 06/03/19 09:00 Constitutional: Yes: Calm Cardiovascular: Yes: Regular Rate and Rhythm, S1, S2 Respiratory: Yes: CTA Bilaterally Gastrointestinal: Yes: Normal Bowel Sounds, Soft Edema: No Neurological: Yes: Alert, Oriented Labs: CBC, BMP 06/02/19 06:15 06/02/19 06:15 Discharge Summary Reason For Visit: CHEST PAIN Current Active Problems Abnormal CT scan (Acute) Chest pain (Acute) Diabetes mellitus (Acute) Emphysema of lung (Acute) HLD (hyperlipidemia) (Acute) HTN (hypertension) (Acute) Hypertriglyceridemia (Acute) Menopause (Acute) Pelvic mass in female (Acute) Thyroid nodule (Acute) Thyroid nodule (Acute) Other Procedures: stress test no ischemia seen Hospital Course: admitted with chest pain had a stress test no ischemia was on BP medication which self dcd and now restarting here in hospital Condition: Stable - Instructions Referrals: Vinayak Kidd MD, MD [Staff Physician] - Disposition: HOME - Home Medications Comprehensive Discharge Medication List: Ambulatory Orders NK [No Known Home Medication] 06/01/19
[2019-06-03 14:04] VITALS: BMI 46.5
== END 2019-06-03 13:12 | disposition home or self-care (01) | DRG 313 ==
LOC: JER 11:04 → UNDOADMOB 17:16 → JERBED 17:16 → OBSVTOIN 06-01 08:31 → J4W 06-01 15:36
PROVIDERS: ADMIT Family Medicine; ATTEND Family Medicine
DX: R07.89 Other chest pain (principal); Z68.42 Body mass index [BMI] 45.0-49.9, adult; I10 Essential (primary) hypertension; E78.5 Hyperlipidemia, unspecified; I25.2 Old myocardial infarction; Z91.14 Patient's other noncompliance with medication regimen; F17.210 Nicotine dependence, cigarettes, uncomplicated; I73.9 Peripheral vascular disease, unspecified; Z98.61 Coronary angioplasty status; E66.9 Obesity, unspecified; E04.1 Nontoxic single thyroid nodule; E11.9 Type 2 diabetes mellitus without complications; E78.1 Pure hyperglyceridemia; K76.0 Fatty (change of) liver, not elsewhere classified; K57.90 Diverticulosis of intestine, part unspecified, without perforation or abscess without bleeding
CPT/HCPCS: 36415; 71045-TC-FY; 71275-TC; 74174-TC; 76830-TC; 76856-TC; 78452-TC; 80053; 80061; 82550; 82962; 83036; 83721; 83735; 83880; 84436; 84439; 84443; 84445; 84480; 84484; 85025; 85610; 85730; 86304; 86376; 93005; 93010; 93017; 93306-TC; 93970-TC; 99285-25; A9502; G0378; J1644; J2785

== ENCOUNTER → 2024-09-20 | Day surgery (SDC) | payer OTHER, BC | END | disposition home or self-care (01) | LOC: JRADIR 10:06 | PROVIDERS: ATTEND Internal Medicine Endocrinology, Diabetes & Metabolism | PROC: 0G9G3ZX Drainage of Left Thyroid Gland Lobe, Percutaneous Approach, Diagnostic (ICD-10-PCS; principal; 2024-09-20) | DX: E04.1 Nontoxic single thyroid nodule (principal) | CPT/HCPCS: 10005; 76942; 88173; 88305-TC ==

== ENCOUNTER → 2025-01-20 | Day surgery (SDC) | payer OTHER, BC | END | disposition home or self-care (01) | LOC: JRADIR 09:06 | PROVIDERS: ATTEND Internal Medicine Endocrinology, Diabetes & Metabolism | PROC: 0GBG3ZX Excision of Left Thyroid Gland Lobe, Percutaneous Approach, Diagnostic (ICD-10-PCS; principal; 2025-01-20) | PROC: 0GBH3ZX Excision of Right Thyroid Gland Lobe, Percutaneous Approach, Diagnostic (ICD-10-PCS; 2025-01-20) | DX: E04.2 Nontoxic multinodular goiter (principal) | CPT/HCPCS: 10005; 76942 ==